=== PATIENT | male | born 1950 | race Caucasian/White ===

== ENCOUNTER 2019-03-23 20:45 | Emergency (ER) | payer MEDICARE, OTHER, SELFPAY ==
[2019-03-23 20:54] VITALS: BP 158/73; PULSE 75; RESP 24; TEMP 36.9; O2SAT 97
--- NOTE | 2019-03-23 21:01 | DI.RAD.S_ITS ---
PROCEDURE: XR CHEST 2V INDICATIONS: Shortness of breath, weakness TECHNIQUE: 2 views of the chest were acquired. COMPARISON: None. FINDINGS: Surgical changes and devices: Median sternotomy and valvuloplasty changes are present single lead ICD via left subclavian vein. Lungs and pleura: Patchy and linear retrocardiac opacities. Blunting of the costophrenic angles posteriorly suggest small effusions. Mediastinum: Mediastinal contours are normal. The heart is moderately enlarged. Central vasculature is mildly prominent and the interstitium is diffusely thickened.. Bones and chest wall: No suspicious bony abnormalities. Soft tissues appear unremarkable. IMPRESSION: Moderate cardiomegaly with surgical changes as described. Central venous and interstitial prominence suggesting edema, probably secondary to CHF. Retrocardiac opacities may be early pulmonary edema or prominent vasculature. small bilateral pleural effusions. Dictated by: Krupa Bermudez M.D. on 03/23/2019 at 21:30 Approved by: rKupa Bermudez M.D. on 03/23/2019 at 21:33
[2019-03-23 21:27] LABS: Add Manual Diff / Slide Review NO; Basophils Absolute Auto 0 /uL (0-100); Basophils Percent Auto 0.3 % (0-2); Eosinophils Absolute Auto 200 /uL (0-450); Hematocrit 41.9 % (41-53); Hemoglobin 13.5 g/dL (13.5-17.5); Lymphocytes Absolute Auto 600 /uL (1100-4500); Lymphocytes Percent Auto 6.5 % (25-40); Mean Corpuscular HGB Conc 32.1 % (30-36); Mean Corpuscular Hemoglobin 32.6 PG (26-34); Mean Corpuscular Volume 101.5 fL (80-100); Monocytes Absolute Auto 500 /uL (0-900); Monocytes Percent Auto 5.2 % (3-14); Neutrophils Absolute Auto 8200 /uL (1500-7000); Platelet Count 126 X10^3/uL (150-400); Red Blood Cell Count 4.13 X10^6/uL (4.5-5.9); White Blood Cell Count 9.6 X10^3/uL (4.5-11.0)
[2019-03-23 21:32] LABS: D Dimer 223 ng/mL (<230); Lactate (Lactic Acid) 1.6 mmol/L (0.7-2.1)
[2019-03-23] MEDS: ONDANSETRON 4 MG/2 ML INJ IV (21:32)
[2019-03-23 21:36] LABS: BUN Creatinine Ratio 20.3 (6-22); Blood Urea Nitrogen 65 mg/dL (9-20); Carbon Dioxide 23 mmol/L (22-32); Chloride 109 mmol/L (98-107); Creatine Kinase 91 U/L (55-170); Estimated Glomerular Filt Rate 19.3 mL/min (>60); Glucose 196 mg/dL (80-110); HEMOLYSIS 20 (0-50); Magnesium 2.4 mg/dL (1.6-2.3); Potassium 4.9 mmol/L (3.4-5.1); Sodium 144 mmol/L (137-145)
[2019-03-23 21:40] LABS: B Type Natriuretic Peptide 1360 (<100)
[2019-03-23 21:50] LABS: Procalcitonin 0.07 ng/mL (<0.5)
[2019-03-23 21:56] VITALS: BP 150/80; PULSE 67; RESP 21; O2SAT 94
[2019-03-23 22:30] VITALS: BP 169/63; PULSE 67; RESP 17; O2SAT 93
[2019-03-23] MEDS: FUROSEMIDE 40 MG/4 ML VIAL IV (22:46)
[2019-03-23 23:00] VITALS: BP 182/69; PULSE 65; RESP 17; O2SAT 93
[2019-03-23 23:34] LABS: Bacteria Urine None Seen; WBC Urine None Seen (0-5/HPF)
[2019-03-23 23:36] LABS: Appearance Urine UA CLEAR; Bilirubin Urine UA NEGATIVE (NEGATIVE); Color Urine UA YELLOW; Glucose Urine UA TRACE g/dL (Negative); Ketones Urine UA NEGATIVE (NEGATIVE); Leukocyte Esterase Urine UA NEGATIVE (NEGATIVE); Nitrite Urine UA NEGATIVE (Negative); Occult Blood Urine UA 1+ (Negative); Protein Urine UA 2+ (Negative); Urobilinogen Urine UA 0.2 E.U./dL (0.2)
[2019-03-23 23:41] VITALS: BP 145/55; PULSE 64; RESP 18; O2SAT 94
[2019-03-23] MEDS: ONDANSETRON 4 MG ODT PREPACK 1 BOTTLE MISC (23:45)
[2019-03-23 23:53] LABS: Culture Indicated Urine Cult Not Indicated; RBC Urine 0-1/HPF (0-5/HPF); Squamous Epithelial Cell Urine 0-1 /HPF (0-5/HPF)
--- NOTE | 2019-03-24 01:56 | ED_ITS ---
HPI - SOB/Dyspnea General Chief Complaint: Shortness of Breath/Dyspnea Stated Complaint: SOB, Nausea, Cold Time Seen by Provider: 03/23/19 20:54 Source: patient and family Mode of arrival: ambulatory Limitations: no limitations History of Present Illness 68-year-old male former smoker with history aortic valve replacement, coronary artery disease, CHF presents with increasing shortness of breath for the past day or so. His shortness of breath is worse with exertion or lying flat. He traditionally takes an extra Lasix when his CHF is acting up which he did 1 hour prior to his arrival. He does not use home oxygen. He denies chest pain and is not dizzy nor weak or lightheaded. He did have 1 episode of vomiting earlier today but denies any ongoing nausea or abdominal pain. Denies fever or chills. He is resting relatively comfortably when sitting still. He denies any dietary indiscretions or missed doses of medications MD Complaint: shortness of breath Onset (ago): hour(s) Severity: mild Consistency/Duration: constant Relieving factors: oxygen and rest Exacerbating factors: lying flat and exertion Known history of: congestive heart failure Related Data Home oxygen amount: none Allergies Allergy/AdvReac Type Severity Reaction Status Date / Time No Known Drug Allergies Allergy Verified 03/23/19 20:54 Review of Systems Constitutional Denies chills, Denies fever(s), Denies lethargy and Denies weakness Eyes Denies change in vision, Denies eye discharge, Denies irritation and Denies loss of vision ENT Ears, Nose, Mouth, and Throat: Denies change in voice, Denies neck pain and Denies sore throat Cardiovascular Denies chest pain, Denies irregular heart rhythm, Reports leg edema, Denies lightheadedness, Denies palpitations, Reports dyspnea, Reports dyspnea on exertion and Reports orthopnea Respiratory Denies cough, Reports dyspnea, Reports dyspnea on exertion and Denies wheezing Gastrointestinal Gastrointestinal: Denies abdominal pain, Denies change in bowel habits, Denies diarrhea, Denies nausea and Denies vomiting Genitourinary Denies hematuria, Denies flank pain, Denies urinary incontinence and Denies urinary urgency Musculoskeletal Denies neck pain Integumentary/Breasts Denies pruritus, Denies erythema, Denies rash and Denies wounds Neurologic Denies confusion, Denies loss of vision and Denies weakness Psychiatric Denies anxiety, Denies confusion, Denies depression, Denies homicidal ideation and Denies suicidal ideation Endocrine Denies palpitations Hematologic/Lymphatic Denies easy bruising Allergic/Immunologic Denies wheezing PFSH Social History Smoking Status: Former smoker Social History Smoking Status: Former smoker Exam Narrative Exam Narrative: GENERAL: 68-year-old male, appears older than stated age, mild respiratory distress HEAD: Atraumatic. Normocephalic. No temporal or scalp tenderness. EYES: Pupils equal round and reactive. Extraocular motions intact. No scleral icterus. No injection or drainage. ENT: Nose without bleeding, purulent drainage or septal hematoma. Throat without erythema, tonsillar hypertrophy or exudate. Uvula midline. Airway patent. NECK: Trachea midline. No JVD or lymphadenopathy. Supple, nontender, no meningeal signs. CARDIOVASCULAR: Regular rate and rhythm without murmurs, gallops, or rubs. RESPIRATORY: Faint crackles in bilateral bases, no wheeze GASTROINTESTINAL: Abdomen soft, non-tender, large protuberant abdomen is at his baseline. No hepato-splenomegaly, or palpable masses. No guarding. EXTREMITIES: 1+ pitting edema bilateral lower extremities BACK: Nontender without deformity or crepitance. No flank tenderness. NEURO: AOx3. SKIN: No rash or erythema. Initial Vital Signs Initial Vital Signs: Vital Signs Temperature 98.5 F 03/23/19 20:54 Pulse Rate 75 03/23/19 20:54 Respiratory Rate 24 03/23/19 20:54 Blood Pressure 158/73 H 03/23/19 20:54 Pulse Oximetry 97 03/23/19 20:54 Course Course Narrative: Patient makes dilute urine with use of IV Lasix and feels much better rather quickly. We are able to review his labs from about 1 week ago and other than BNP is at his baseline, most notably for renal function Orders Ordered: ED Orders 03/23/19 21:01 XR chest 2V Stat EKG-12 Lead Stat 03/23/19 21:10 B Type Natriuretic Peptide Stat Basic Metabolic Panel Stat Complete Blood Count AUTO DIFF Stat D Dimer Stat Lactate (Lactic Acid) Stat Magnesium Stat Procalcitonin Stat Troponin & CK Cardiac Panel Stat 03/23/19 21:27 Blood Culture Stat 03/23/19 23:25 Urinalysis and Microscopic Stat Discontinued Medications Furosemide (Lasix) 40 mg IV NOW ONE Stop: 03/23/19 22:20 Last Admin: 03/23/19 22:46 Dose: 40 mg Ondansetron HCl (Zofran) 4 mg IV NOW ONE Stop: 03/23/19 21:24 Last Admin: 03/23/19 21:32 Dose: 4 mg Ondansetron HCl (Zofran Odt Prepack) 1 bottle MISC SEEINSTR ONE Stop: 03/23/19 23:39 Last Admin: 03/23/19 23:45 Dose: 1 bottle Vital Signs - 8 hr 03/23/19 20:54 03/23/19 21:56 03/23/19 22:30 Temperature 98.5 F Pulse Rate 75 67 67 Respiratory Rate 24 21 17 Blood Pressure 158/73 H Blood Pressure [Left Wrist] 150/80 H 169/63 H Pulse Oximetry 97 94 93 03/23/19 23:00 03/23/19 23:41 Temperature Pulse Rate 65 64 Respiratory Rate 17 18 Blood Pressure Blood Pressure [Left Wrist] 182/69 H 145/55 H Pulse Oximetry 93 94 MDM - SOB/Dyspnea Lab Data Result diagrams: 03/23/19 21:10 03/23/19 21:10 Lab Results 03/23/19 03/23/19 03/23/19 Range/Units 21:10 21:10 21:10 WBC 9.6 (4.5-11.0) X10^3/uL RBC 4.13 L (4.5-5.9) X10^6/uL Hgb 13.5 (13.5-17.5) g/dL Hct 41.9 (41-53) % MCV 101.5 H (80-100) fL MCH 32.6 (26-34) PG MCHC 32.1 (30-36) % RDW 16.0 H (11.6-14.8) % Plt Count 126 L (150-400) X10^3/uL Neut % (Auto) 86.0 H (50-75) % Lymph % (Auto) 6.5 L (25-40) % Caroline % (Auto) 5.2 (3-14) % Eos % (Auto) 2.0 (2-4) % Baso % (Auto) 0.3 (0-2) % Neut # (Auto) 8200 H (9090-2974) /uL Lymph # (Auto) 600 L (6378-3955) /uL Caroline # (Auto) 500 (0-900) /uL Eos # (Auto) 200 (0-450) /uL Baso # (Auto) 0 (0-100) /uL D-Dimer 223 (<230) ng/mL Sodium 144 (137-145) mmol/L Potassium 4.9 (3.4-5.1) mmol/L Chloride 109 H (98-107) mmol/L Carbon Dioxide 23 (22-32) mmol/L BUN 65 H (9-20) mg/dL Creatinine 3.20 H (0.66-1.25) mg/dL Estimated GFR 19.3 L (>60) mL/min BUN/Creatinine Ratio 20.3 (6-22) Glucose 196 H (80-110) mg/dL Lactate (0.7-2.1) mmol/L Calcium 9.0 (8.4-10.2) mg/dL Magnesium 2.4 H (1.6-2.3) mg/dL Total Creatine Kinase 91 (55-170) U/L CK-MB (CK-2) TNP CK-MB (CK-2) Rel Index TNP Troponin I 0.070 H (0.01-0.034) ng/mL B-Natriuretic Peptide 1360 H (<100) Procalcitonin (<0.5) ng/mL Urine Color Urine Appearance Urine pH (4.5-8.0) Ur Specific [place] (1.000-1.035) Urine Protein (Negative) Urine Glucose (UA) (Negative) g/dL Urine Ketones (NEGATIVE) Urine Occult Blood (Negative) Urine Nitrate (Negative) Urine Bilirubin (NEGATIVE) Urine Urobilinogen (0.2) E.U./dL Ur Leukocyte Esterase (NEGATIVE) Urine RBC (0-5/HPF) Urine WBC (0-5/HPF) Ur Squamous Epith Cells (0-5/HPF) Urine Bacteria (None) Ur Culture Indicated? 03/23/19 03/23/19 03/23/19 Range/Units 21:10 21:10 23:25 WBC (4.5-11.0) X10^3/uL RBC (4.5-5.9) X10^6/uL Hgb (13.5-17.5) g/dL Hct (41-53) % MCV (80-100) fL MCH (26-34) PG MCHC (30-36) % RDW (11.6-14.8) % Plt Count (150-400) X10^3/uL Neut % (Auto) (50-75) % Lymph % (Auto) (25-40) % Caroline % (Auto) (3-14) % Eos % (Auto) (2-4) % Baso % (Auto) (0-2) % Neut # (Auto) (2134-5242) /uL Lymph # (Auto) (3266-2417) /uL Caroline # (Auto) (0-900) /uL Eos # (Auto) (0-450) /uL Baso # (Auto) (0-100) /uL D-Dimer (<230) ng/mL Sodium (137-145) mmol/L Potassium (3.4-5.1) mmol/L Chloride (98-107) mmol/L Carbon Dioxide (22-32) mmol/L BUN (9-20) mg/dL Creatinine (0.66-1.25) mg/dL Estimated GFR (>60) mL/min BUN/Creatinine Ratio (6-22) Glucose (80-110) mg/dL Lactate 1.6 (0.7-2.1) mmol/L Calcium (8.4-10.2) mg/dL Magnesium (1.6-2.3) mg/dL Total Creatine Kinase (55-170) U/L CK-MB (CK-2) CK-MB (CK-2) Rel Index Troponin I (0.01-0.034) ng/mL B-Natriuretic Peptide (<100) Procalcitonin 0.07 (<0.5) ng/mL Urine Color Yellow Urine Appearance Clear Urine pH 5.0 (4.5-8.0) Ur Specific [place] 1.020 (1.000-1.035) Urine Protein 2+ H (Negative) Urine Glucose (UA) Trace H (Negative) g/dL Urine Ketones Negative (NEGATIVE) Urine Occult Blood 1+ H (Negative) Urine Nitrate Negative (Negative) Urine Bilirubin Negative (NEGATIVE) Urine Urobilinogen 0.2 (0.2) E.U./dL Ur Leukocyte Esterase Negative (NEGATIVE) Urine RBC 0-1/hpf (0-5/HPF) Urine WBC None seen (0-5/HPF) Ur Squamous Epith Cells 0-1 /hpf (0-5/HPF) Urine Bacteria None seen (None) Ur Culture Indicated? Cult not indicated Imaging Data Chest x-ray: Radiologist's impression: Keo Ochoa 68 M [address] [address] XRay Report Signed Patient: Keo Ochoa DMR#: [id number] : [id number]:[id number] Age/Sex: 68 / MDate of Service: 03/23/19 Loc: ED Accession Number: [id number] Procedure: XR chest 2V Ordering Provider: Aric Esquivel D.O. PROCEDURE: XR CHEST 2V INDICATIONS: Shortness of breath, weakness TECHNIQUE: 2 views of the chest were acquired. COMPARISON: None. FINDINGS: Surgical changes and devices: Median sternotomy and valvuloplasty changes are present single lead ICD via left subclavian vein. Lungs and pleura: Patchy and linear retrocardiac opacities. Blunting of the costophrenic angles posteriorly suggest small effusions. Mediastinum: Mediastinal contours are normal. The heart is moderately enlarged. Central vasculature is mildly prominent and the interstitium is diffusely thickened.. Bones and chest wall: No suspicious bony abnormalities. Soft tissues appear unremarkable. IMPRESSION: Moderate cardiomegaly with surgical changes as described. Central venous and interstitial prominence suggesting edema, probably secondary to CHF. Retrocardiac opacities may be early pulmonary edema or prominent vasculature. small bilateral pleural effusions. Dictated by: Krupa Bermudez M.D. on 03/23/2019 at 21:30 Approved by: Krupa Bermudez M.D. on 03/23/2019 at 21:33 [facility] Narrative Medical decision making narrative: Multiple etiologies for patient's symptoms considered including: [Congestive heart failure versus pneumonia versus COPD versus coronary artery disease versus pulmonary embolism versus other] Patient's symptoms improved or duration of stay with above-stated therapies. Findings and discharge diagnosis discussed with patient/family followed by verbalization of understanding Return precautions discussed with patient/family whom verbalize understanding. Discharge Plan Departure Patient Disposition: Home Clinical Impression: Congestive heart failure Qualifiers: Heart failure type: unspecified Heart failure chronicity: unspecified Qualified Code(s): I50.9 - Heart failure, unspecified Discharge Date/Time: 03/23/19 23:56 Interventions: ED Discharge Assessment Last Done: 03/23/19 23:51 Instructions: DI for Heart Failure Activity Restrictions/Additional Instructions: *You have been diagnosed with [acute CHF] *What to do: *Take medications as directed: Please increase your Lasix as we discussed for the next 3 days (taken extra pill as you did today) *Follow up with your primary care provider in 2-3 days, call for an appointment. Let them know you were seen in the Emergency Department and that we ask that you be seen in follow up *Return to ER if you should have any new, worsening or concerning symptoms, such as [ongoing vomiting, abdominal pain, fever greater than 101 F, chest pain, worsening shortness of breath or other bothersome symptoms]
== END 2019-03-23 23:56 | disposition home or self-care (01) ==
PROVIDERS: Emergency Provider Emergency Medicine
DX: I50.9 Heart failure, unspecified (principal)
CPT/HCPCS: 36415; 36591; 71046; 80048; 81001; 82550; 83605; 83735; 83880; 84145; 84484; 85025; 85379; 87040; 93005; 96374; 96375; 99283; 99285; J1940; J2405